=== PATIENT | male | born 1940 | race African-American/Black ===

== ENCOUNTER 2017-12-15 17:16 | Inpatient (IN) | payer MEDICARE, OTHER ==
[~2017-12-15] VITALS: Ht 172.7 cm; Wt 53.5 kg
[~2017-12-15 17:16] MED LIST: Allopurinol; Metoprolol; [UNRECOGNIZED DRUG - REMARK]
[2017-12-15 19:35] LABS: HEMATOCRIT. 34.8 % (42.0-52.0); HEMOGLOBIN. 11.1 g/dL (14.0-18.0); MEAN CORPUSCULAR HEMOGLOBIN 29.1 pg (28.0-32.0); MEAN CORPUSCULAR VOLUME 91.5 fL (80.0-94.0); MEAN PLATELET VOLUME 8.1 fl (7.4-10.4); PLATELET 222 x1000/uL (130-400); RED CELL DISTRIBUTION WIDTH 16.8 % (11.6-14.6)
[2017-12-15 19:42] LABS: CHLORIDE 114 mEq/L (98-107)
[2017-12-15 20:16] LABS: HEPATITIS B SURFACE ANTIGEN NEGATIVE
[2017-12-15 20:44] LABS: HEPATITIS B CORE AB IGM NEGATIVE
[2017-12-15 20:45] LABS: HEPATITIS A AB IGM NEGATIVE (NEGATIVE)
[2017-12-15 21:15] LABS: PLATELET ESTIMATE NORMAL
[2017-12-15 21:47] LABS: CLARITY URINE TURBID (CLEAR); COLOR URINE YELLOW (YELLOW); KETONES URINE TRACE (NEGATIVE); LEUKOCYTE ESTERASE URINE 3+ (NEGATIVE); NITRITE URINE NEGATIVE (NEGATIVE); OCCULT BLOOD URINE 2+ (NEGATIVE); PROTEIN URINE 4+ (NEGATIVE); SPECIFIC GRAVITY URINE 1.017 (1.005-1.030)
[2017-12-15 22:05] LABS: *AMPHETAMINES SCREEN URINE NEGATIVE (NEGATIVE); *BARBITURATES SCREEN URINE NEGATIVE (NEGATIVE)
[2017-12-15 22:06] LABS: *BENZODIAZEPINES SCREEN URINE NEGATIVE (NEGATIVE); *COCAINE SCREEN URINE NEGATIVE (NEGATIVE); CANNABINOID URINE SCREEN NEGATIVE (NEGATIVE); METHADONE URINE SCREEN NEGATIVE (NEGATIVE); OPIATES URINE SCREEN NEGATIVE (NEGATIVE); PHENCYCLIDINE URINE SCREEN NEGATIVE (NEGATIVE)
[2017-12-16] VITALS (8 sets, daily range): BP systolic 102–147; BP diastolic 48–90
[2017-12-16] MEDS ORDERED: ASPIRIN 325MG TABLET PO ONE (01:45)
[2017-12-16] MEDS ORDERED: HEPARIN 5000 UNITS/ML VIAL IV SCH (01:45)
[2017-12-16] MEDS ORDERED: HEPARIN 25,000 UNITS PREMIX 500 ML IV PRN (01:45)
[2017-12-16] MEDS ORDERED: DEXTROSE 50% WATER 50ML SYRINGE IV ONE (03:49)
[2017-12-16] MEDS ORDERED: HEPARIN 25,000 UNITS PREMIX 500 ML IV SCH ×2 (07:45→09:00)
[2017-12-16] MEDS ORDERED: DEXTROSE 50% WATER 50ML SYRINGE IV PRN (07:45)
[2017-12-16] MEDS: INSULIN LISPRO 100 UNITS/ML SUBCUT SCH ×4 (07:57→20:42)
[2017-12-16] MEDS: BLOOD SUGAR DIAGNOSTIC STRIP TEST SCH ×4 (07:57→20:42)
[2017-12-16] MEDS ORDERED: NITROGLYCERIN OINT 1GM/INCH UDPKT TD SCH (08:00)
[2017-12-16] MEDS ORDERED: METOPROLOL TARTRATE 50MG TABLET PO SCH (09:00)
[2017-12-16] MEDS ORDERED: HEPARIN BOLUS PRN aPTT <30 IV (09:00)
[2017-12-16] MEDS ORDERED: HEPARIN BOLUS PRN aPTT 30-44 IV (09:00)
[2017-12-16] MEDS: ASPIRIN 81MG EC TABLET PO SCH (10:59)
[2017-12-16] MEDS: DEXT 5%/0.45% NACL 1000ML 1,000 ML IV SCH ×2 (11:00→22:31)
[2017-12-16] MEDS: CEFTRIAXONE 1 G PREMIX 50 ML IV SCH (11:00)
[2017-12-16] MEDS: AMLODIPINE 2.5MG TABLET PO SCH ×2 (11:12→20:27)
[2017-12-16 12:02] LABS: INR 1.1; PROTHROMBIN TIME 11.3 sec (9.1-11.1)
[2017-12-16] MEDS: ENOXAPARIN 60MG/0.6ML SYR SUBCUT SCH (12:54)
[2017-12-16] MEDS: CITRIC ACID/SODIUM CITRATE SOLN 30ML UDC PO SCH (20:23)
[2017-12-16] MEDS: MORPHINE SULFATE 4 MG/ML CPJ (NOT FOR IM USE) IV PRN ×2 (20:29→23:57)
[2017-12-16] MEDS ORDERED: SODIUM POLYSTYRENE SULFONATE 15 G/60 ML BOT PO NR (20:30)
[2017-12-16] MEDS ORDERED: ATORVASTATIN CALCIUM 20MG TABLET PO SCH (21:00)
[2017-12-17 02:00] VITALS: BP 117/72
[2017-12-17] MEDS: MORPHINE SULFATE 4 MG/ML CPJ (NOT FOR IM USE) IV PRN (03:56)
[2017-12-17 04:28] LABS: BG BASE EXCESS -7.2 mmol/L (-2.0-2.0); BG CARBOXYHEMOGLOBIN 0.5 % (0.5-1.5); BG FRACTION INSPIRED OXYGEN 21; BG HCO3 ACT 15.4 mmol/L (22.0-26.0); BG METHEMOGLOBIN 0.3 % (0.0-1.5); BG OXYHEMOGLOBIN 97.2 % (94.0-97.0); BG PCO2 23.7 mmHg (35.0-45.0); BG PH 7.431 (7.350-7.450); BG PO2 108.7 mmHg (75.0-100.0); BG SAMPLE SITE RIGHT RADIAL; BG TOTAL HEMOGLOBIN 11.9 g/dL (12.0-18.0); BG VENT MODE ROOM AIR
[2017-12-17 06:00] VITALS: BP 120/61
[2017-12-17 06:16] LABS: HEMATOCRIT. 34.5 % (42.0-52.0); HEMOGLOBIN. 11.1 g/dL (14.0-18.0); MEAN CORPUSCULAR HEMOGLOBIN 29.5 pg (28.0-32.0); MEAN CORPUSCULAR VOLUME 91.7 fL (80.0-94.0); MEAN PLATELET VOLUME 8.2 fl (7.4-10.4); PLATELET 197 x1000/uL (130-400); RED BLOOD CELL COUNT 3.76 mill/uL (4.7-6.1); RED CELL DISTRIBUTION WIDTH 16.1 % (11.6-14.6)
[2017-12-17 06:25] LABS: PHOSPHORUS 3.2 mg/dL (2.5-4.9)
[2017-12-17 08:00] VITALS: BP 118/65
[2017-12-17] MEDS: INSULIN LISPRO 100 UNITS/ML SUBCUT SCH ×2 (08:00→12:17)
[2017-12-17] MEDS: BLOOD SUGAR DIAGNOSTIC STRIP TEST SCH ×2 (08:03→12:14)
[2017-12-17] MEDS: CITRIC ACID/SODIUM CITRATE SOLN 30ML UDC PO SCH (09:02)
[2017-12-17] MEDS: AMLODIPINE 2.5MG TABLET PO SCH (09:02)
[2017-12-17] MEDS: ASPIRIN 81MG EC TABLET PO SCH (09:02)
[2017-12-17] MEDS ORDERED: DEXT 5%/0.2% NACL 1,000 ML IV SCH (09:15)
[2017-12-17] MEDS: CEFTRIAXONE 1 G PREMIX 50 ML IV SCH (09:50)
[2017-12-17] MEDS ORDERED: METOPROLOL TARTRATE 50MG TABLET PO SCH (10:00)
[2017-12-17 12:00] VITALS: BP 142/63
[2017-12-17] MEDS: ENOXAPARIN 60MG/0.6ML SYR SUBCUT SCH (12:34)
[2017-12-17 12:48] LABS: PLATELET ESTIMATE NORMAL
[2017-12-17 14:00] VITALS: BP 146/97
[2017-12-17 17:00] VITALS: BP 145/96
== END 2017-12-17 17:25 | disposition short-term general hospital (02) | DRG 871 ==
LOC: ER 17:48 → EDBEDREQ 23:12 → CANRESERV 12-16 01:00 → ENRESERV 12-16 01:00 → 5EST 12-16 01:52 → EDBEDREQDT 12-16 01:57 → EDBEDREQSVC 12-16 01:57 → EDBEDREQ 12-16 01:57 → EDBEDREQTM 12-16 01:57 → ENRESERV 12-16 03:29 → 5EST 12-16 07:15
PROVIDERS: ADMIT Internal Medicine; ATTEND Internal Medicine
DX: A41.51 Sepsis due to Escherichia coli [E. coli] (principal); I21.4 Non-ST elevation (NSTEMI) myocardial infarction; I50.21 Acute systolic (congestive) heart failure; N17.0 Acute kidney failure with tubular necrosis; E87.0 Hyperosmolality and hypernatremia; E87.2 Acidosis; I13.0 Hypertensive heart and chronic kidney disease with heart failure and stage 1 through stage 4 chronic kidney disease, or unspecified chronic kidney disease; I42.9 Cardiomyopathy, unspecified; N13.6 Pyonephrosis; E44.0 Moderate protein-calorie malnutrition; Z68.1 Body mass index [BMI] 19.9 or less, adult; R65.20 Severe sepsis without septic shock; D64.9 Anemia, unspecified; E11.22 Type 2 diabetes mellitus with diabetic chronic kidney disease; R26.81 Unsteadiness on feet; W18.39XA Other fall on same level, initial encounter; F03.90 Unspecified dementia, unspecified severity, without behavioral disturbance, psychotic disturbance, mood disturbance, and anxiety; E05.90 Thyrotoxicosis, unspecified without thyrotoxic crisis or storm; E11.649 Type 2 diabetes mellitus with hypoglycemia without coma; E78.00 Pure hypercholesterolemia, unspecified; E78.5 Hyperlipidemia, unspecified; E87.5 Hyperkalemia; E87.8 Other disorders of electrolyte and fluid balance, not elsewhere classified; N18.9 Chronic kidney disease, unspecified; Z82.49 Family history of ischemic heart disease and other diseases of the circulatory system; Z86.74 Personal history of sudden cardiac arrest; Z95.810 Presence of automatic (implantable) cardiac defibrillator; Z79.899 Other long term (current) drug therapy; Y93.89 Activity, other specified; Y92.89 Other specified places as the place of occurrence of the external cause; Y99.8 Other external cause status; Z87.01 Personal history of pneumonia (recurrent); Z85.46 Personal history of malignant neoplasm of prostate
CPT/HCPCS: 36415; 36600; 71045; 74176; 80048; 80053; 80061; 80305; 81003; 82375; 82805; 82962; 83036; 83735; 83880; 84100; 84443; 84484; 85025; 85610; 85730; 86705; 86709; 86803; 87040; 87077; 87086; 87186; 87340; 93005; 93306; 96374; 96375; 99285; J0696; J1644; J1650; J1815; J2270; J3490; A4315

== ENCOUNTER 2018-01-03 19:03 | Emergency (ER) | payer OTHER ==
[~2018-01-03] VITALS: Ht 170.2 cm; Wt 50.0 kg
[2018-01-03] MEDS ORDERED: ASPIRIN 81MG TABLET PO ONE (19:30)
[2018-01-03] MEDS ORDERED: NITROGLYCERIN 0.4MG TABLET SL SL PRN (19:30)
[2018-01-03 21:32] LABS: BASOPHILS % 0.5 % (0.0-2.0); EOSINOPHILS % 0.5 % (0.0-5.0); HEMATOCRIT. 28.7 % (42.0-52.0); HEMOGLOBIN. 9.3 g/dL (14.0-18.0); LYMPHOCYTES % 14.1 % (20.0-50.0); MEAN CORPUSCULAR HEMOGLOBIN 29.3 pg (28.0-32.0); MEAN CORPUSCULAR VOLUME 90.4 fL (80.0-94.0); MONOCYTES % 10.6 % (2.0-8.0); NEUTROPHILS % 74.3 % (40.0-76.0); PLATELET 218 x1000/uL (130-400); RED BLOOD CELL COUNT 3.18 mill/uL (4.7-6.1); RED CELL DISTRIBUTION WIDTH 16.3 % (11.6-14.6)
[2018-01-03 21:44] LABS: CHLORIDE 106 mEq/L (98-107)
[2018-01-03] MEDS ORDERED: SODIUM POLYSTYRENE SULFONATE 15 G/60 ML BOT PO ONE (22:15)
[2018-01-03] MEDS ORDERED: MORPHINE SULFATE 2 MG/ML CPJ (NOT FOR IM USE) IV ONE (22:45)
[2018-01-04 00:42] VITALS: BP 103/71
== END 2018-01-04 00:44 | disposition short-term general hospital (02) ==
LOC: ER 19:03 → CANRESERV 20:52 → ER 01-04 00:44 → CANBEDREQ 01-04 02:04
DX: R07.89 Other chest pain (principal); I20.0 Unstable angina; N18.9 Chronic kidney disease, unspecified; E87.5 Hyperkalemia; I25.2 Old myocardial infarction; D63.1 Anemia in chronic kidney disease; Z95.810 Presence of automatic (implantable) cardiac defibrillator; Z88.0 Allergy status to penicillin
CPT/HCPCS: 36415; 71045; 80053; 83880; 84484; 85025; 93005; 96374; 99285; J2270